=== PATIENT | male | born 1995 | race Two or more races ===

== ENCOUNTER 2018-10-12 03:39 | Emergency (ER) | payer SELFPAY ==
[2018-10-12 03:43] VITALS: BP 157/89
--- NOTE | 2018-10-12 03:47 | ER Report ---
History and Physical Time Seen By MD: 03:42 Hx. of Stated Complaint: INTERMEDIATE CLEARENCE HPI/ROS CHIEF COMPLAINT: [facility] clearance HISTORY OF PRESENT ILLNESS: 23-year-old male brought in by police for residential clearance. Patient appears alcohol intoxicated. His speech is slurred. Patient denies head injury or other drug use. Patient has abrasion to his left palm. Patient states his tetanus status is up-to-date. REVIEW OF SYSTEMS: Respiratory: No cough, no dyspnea. Cardiovascular: No chest pain, no palpitations. Gastrointestinal: No vomiting, no abdominal pain. Musculoskeletal: No back pain. Allergies: Uncoded Allergies: UNKNOWN (Allergy, Unknown, 10/12/18) Home Meds No Active Prescriptions or Reported Meds Unable To Obtain Past Medical: Unable to Obtain/Update Reviewed Nurses Notes: Yes Old Medical Records Reviewed: Yes Constitutional Vital Sign - Last 24 Hours 10/12/18 03:43 Temp 97.1 Pulse 111 Resp 16 B/P (MAP) 157/89 Pulse Ox 99 O2 Delivery Room Air Physical Exam Vital signs stable, afebrile, pulse ox normal General Appearance: The patient is alert, has no immediate need for airway protection and no current signs of toxicity. Palpation of the head and neck reveals no tenderness or trauma HEENT: Pupils equal and round no injection. TMs normal, oropharynx without dental trauma, mucous. Membranes are moist Respiratory: Chest is non tender, lungs are clear to auscultation. Cardiac: regular rate and rhythm Gastrointestinal: Abdomen is soft and non tender, no masses, bowel sounds normal. Musculoskeletal: Neck: Neck is supple and non tender. Extremities have full range of motion and are non tender. Skin: No rashes or lesions. DIFFERENTIAL DIAGNOSIS: After history and physical exam differential diagnosis was considered for residential clearance, alcohol intoxication, polysubstance abuse Medical Decision Making ED Course/Re-evaluation ED Course Patient was admitted to an examination room. H&P was done. The differential diagnosis was considered. On clinical examination. Patient voices no complaints. He has stable vital signs. He is no findings on clinical examination to suggest serious injuries. Patient's medical cleared for residential admission. Decision to Disposition Date: Oct 12, 2018 Decision to Disposition Time: 03:46 Depart Departure Latest Vital Signs Vital Signs Date Time Temp Pulse Resp B/P (MAP) Pulse Ox O2 Delivery O2 Flow Rate FiO2 10/12/18 03:43 97.1 111 16 157/89 99 Room Air Impression: Primary Impression: Medical clearance for incarceration Additional Impression: Alcohol intoxication Condition: Improved Disposition: [facility] TO INTERMEDIATE/CORRECTIONAL F New Scripts No Active Prescriptions or Reported Meds Patient Instructions: Alcohol Intoxication (ED) Additional Instructions: Medically cleared for residential admission Problem Qualifiers Additional Impression: Alcohol intoxication Complication of substance-induced condition: uncomplicated Qualified Codes: F10.920 - Alcohol use, unspecified with intoxication, uncomplicated NIDIA QUINTERO DO Oct 12, 2018 03:47
== END 2018-10-12 03:53 ==
LOC: ER 03:49
DX: F10.920 Alcohol use, unspecified with intoxication, uncomplicated (principal)
CPT/HCPCS: 99281